=== PATIENT | female | born 1995 | race Caucasian/White ===

== ENCOUNTER 2021-07-23 16:01 | Emergency (ER) | payer OTHER ==
[~2021-07-23] VITALS: Ht 162.6 cm; Wt 42.7 kg
[2021-07-23 16:25] VITALS: BP 140/94
== END 2021-07-23 16:24 | disposition left against medical advice (07) ==
LOC: EMS 16:08
DX: R07.89 Other chest pain (principal); Z53.21 Procedure and treatment not carried out due to patient leaving prior to being seen by health care provider
CPT/HCPCS: 93005